=== PATIENT | female | born 1965 | race Caucasian/White ===

== ENCOUNTER 2017-10-25 13:10 | Inpatient (IN) | payer MEDICAID ==
[~2017-10-25] VITALS: Ht 175.3 cm; Wt 60.0 kg
[~2017-10-25 13:10] MED LIST: ASPI-1265 PO; CETI-102 PO; COMIN IH; DIPH-423 PO; FAMO-1 PO; FURO-150 PO; GRAP50CA5 PO; HYAL1CAP PO; INSU100V36 SQ; KETO5DRO75 OP; LANTUS SUBCUT; LEVA15HF4 IH; LISI2.5T2 PO; MILK200C2 PO; MOME17SP BOTHNARES; MONT10TA21 PO; NITR0.4T48 SL; PANT40TA39 PO; PRED1DRO OP; TRAM50TA2 PO; VALA-7 PO; VITA-319 PO; ZOL50T PO
[2017-10-25 14:22] LABS: INR 1.2 INR; PARTIAL THROMBOPLASTIN TIME 29 SECONDS (22-32)
[2017-10-25 14:28] LABS: ALANINE AMINOTRANSFERASE 16 U/L (12-78); ALBUMIN 2.8 G/DL (3.4-5.0); ALBUMIN/GLOBULIN RATIO 0.5 (1.1-1.5); ALKALINE PHOSPHATASE 92 IU/L (46-116); ANION GAP 8 (8-16); ASPARTATE AMINO TRANSFERASE 23 U/L (10-37); BILIRUBIN,TOTAL 0.8 MG/DL (0.1-1.0); BLOOD UREA NITROGEN 11 MG/DL (7-18); BUN/CREATININE RATIO 14.9 (6.6-38.0); CALCIUM 9.6 MG/DL (8.5-10.1); CHLORIDE 97 MMOL/L (99-107); CREATININE 0.74 MG/DL (0.40-0.90); GLUCOSE 235 MG/DL (70-104); POTASSIUM 3.1 MMOL/L (3.5-5.1); SODIUM 136 MMOL/L (135-145); TOTAL CARBON DIOXIDE 31.4 MMOL/L (24-32); eGFR 82 ML/MIN
[2017-10-25] MEDS ORDERED: CefTRIAXone 2gm/D5W 50ml 50 ML IV ONE (14:30)
[2017-10-25] MEDS ORDERED: azithromycin/NS 500mg/250ml 250 ML IV ONE (14:30)
[2017-10-25 14:37] LABS: BASOPHILS % (AUTO) 0.3 % (0-1); EOSINOPHILS # (AUTO) 0.1 X10'3 (0-0.9); EOSINOPHILS % (AUTO) 1.6 % (0-6); HEMATOCRIT 37.7 % (35.0-45.0); HEMOGLOBIN 12.7 g/dl (12.0-16.0); LYMPHOCYTES # (AUTO) 0.9 X10'3 (1.1-4.8); LYMPHOCYTES % (AUTO) 10.4 % (21-51); MEAN CORPUSCULAR HEMOGLOBIN 30.8 PG (27.0-31.0); MEAN CORPUSCULAR HGB CONC 33.8 % (33.0-36.5); MEAN CORPUSCULAR VOLUME 91.2 FL (78-98); MEAN PLATELET VOLUME 8.5 FL (7.4-10.4); MONOCYTES # (AUTO) 0.6 X10'3 (0-0.9); MONOCYTES % (AUTO) 7.1 % (2-12); NEUTROPHILS # (AUTO) 6.8 X10'3 (1.8-7.7); NEUTROPHILS % (AUTO) 80.6 % (42-75); PLATELET COUNT 196 X10'3 (140-440); RED BLOOD COUNT 4.13 X10'6 (4.20-5.60); RED CELL DISTRIBUTION WIDTH 16.5 % (11.5-14.5); WHITE BLOOD COUNT 8.4 X10'3 (4.5-11.0)
[2017-10-25] MEDS ORDERED: iohexol 350MG/ML 100ml bottle IV ONE (14:50)
[2017-10-25] MEDS ORDERED: furosemide 10 MG/1 ML 10ml inj IV ONE (16:20)
[2017-10-25] MEDS ORDERED: mag hydrox/Alum hydrox/simeth 30ml oral suspension PO PRN (16:35)
[2017-10-25] MEDS ORDERED: magnesium hydroxide 30ml (MOM) UD suspension PO PRN (16:35)
[2017-10-25] MEDS ORDERED: acetaminophen 325mg tablet PO PRN (16:35)
[2017-10-25] MEDS ORDERED: HYDROcodone/acetaminophen 5mg/325mg tablet PO PRN (16:35)
[2017-10-25] MEDS ORDERED: potassium Cl 20 mEq SR tablet PO ONE (16:35)
[2017-10-25] MEDS ORDERED: morphine 2 MG/ML inj. syringe IV PRN ×2 (16:35)
[2017-10-25] MEDS ORDERED: CHOL10002 PO (17:29)
[2017-10-25] MEDS ORDERED: nitroGLYCERIN 0.4mg SUBLingual tab SL PRN (18:30)
[2017-10-25] MEDS ORDERED: famotidine 20mg tablet PO ONE (19:55)
[2017-10-25] MEDS: famotidine 20mg tablet PO SCH (20:00)
[2017-10-25] MEDS ORDERED: [UNRECOGNIZED DRUG - OTHER] PO SCH (20:00)
[2017-10-25] MEDS ORDERED: furosemide 20 MG/2 ML vial IV SCH (20:00)
[2017-10-25] MEDS ORDERED: [UNRECOGNIZED DRUG - OTHER] PO SCH (20:00)
[2017-10-25] MEDS: KETOTIFEN FUMARATE OP SCH (20:00)
[2017-10-25] MEDS: furosemide 20 MG/2 ML vial IV SCH (20:00)
[2017-10-25 20:45] VITALS: BP 102/72
[2017-10-25] MEDS ORDERED: insulin glargine (Lantus) pen - multi-dose SQ SCH (21:00)
[2017-10-25] MEDS: diphenhydrAMINE 25mg capsule PO SCH (22:01)
[2017-10-25] MEDS: insulin glargine (Lantus) pen - multi-dose SQ SCH (22:20)
[2017-10-26] VITALS (9 sets, daily range): BP systolic 91–129; BP diastolic 53–87
[2017-10-26] MEDS: ondansetron/PF 4mg/2ml inj IV PRN ×2 (00:20→10:34)
[2017-10-26 03:28] LABS: ALBUMIN 2.7 G/DL (3.4-5.0); ANION GAP 5 (8-16); BLOOD UREA NITROGEN 13 MG/DL (7-18); CALCIUM 8.7 MG/DL (8.5-10.1); CHLORIDE 99 MMOL/L (99-107); CREATININE 0.81 MG/DL (0.40-0.90); GLUCOSE 189 MG/DL (70-104); POTASSIUM 3.6 MMOL/L (3.5-5.1); SODIUM 137 MMOL/L (135-145); eGFR 74 ML/MIN
[2017-10-26 05:15] LABS: BASOPHILS % (AUTO) 0.4 % (0-1); EOSINOPHILS # (AUTO) 0.1 X10'3 (0-0.9); EOSINOPHILS % (AUTO) 1.3 % (0-6); HEMATOCRIT 37.1 % (35.0-45.0); HEMOGLOBIN 12.2 g/dl (12.0-16.0); LYMPHOCYTES # (AUTO) 0.8 X10'3 (1.1-4.8); LYMPHOCYTES % (AUTO) 10.1 % (21-51); MEAN CORPUSCULAR HEMOGLOBIN 30.5 PG (27.0-31.0); MEAN CORPUSCULAR VOLUME 92.6 FL (78-98); MEAN PLATELET VOLUME 8.6 FL (7.4-10.4); MONOCYTES # (AUTO) 0.6 X10'3 (0-0.9); MONOCYTES % (AUTO) 6.9 % (2-12); NEUTROPHILS # (AUTO) 6.8 X10'3 (1.8-7.7); NEUTROPHILS % (AUTO) 81.3 % (42-75); PLATELET COUNT 195 X10'3 (140-440); RED BLOOD COUNT 4.01 X10'6 (4.20-5.60); WHITE BLOOD COUNT 8.3 X10'3 (4.5-11.0)
[2017-10-26] MEDS: KETOTIFEN FUMARATE OP SCH ×2 (08:00→20:00)
[2017-10-26] MEDS: fluticasone nasal spray 16GM bottle NS SCH (08:00)
[2017-10-26] MEDS: enoxaparin 40mg/0.4ml syringe SUBCUT SCH (08:00)
[2017-10-26] MEDS ORDERED: sertraline 25mg tablet PO SCH (08:00)
[2017-10-26] MEDS: furosemide 20 MG/2 ML vial IV SCH ×2 (08:22→20:11)
[2017-10-26] MEDS: montelukast 10mg tablet PO SCH (08:24)
[2017-10-26] MEDS: valacyclovir 500mg tablet PO SCH (08:24)
[2017-10-26] MEDS: pantoprazole 40mg Tablet.DR PO SCH (08:24)
[2017-10-26] MEDS: famotidine 20mg tablet PO SCH ×2 (08:25→20:14)
[2017-10-26] MEDS: aspirin 81mg tablet.DR PO SCH (08:25)
[2017-10-26] MEDS: cetirizine 10mg tablet PO SCH (08:25)
[2017-10-26] MEDS ORDERED: LIDOcaine 0.5% (5mg/ml) 50ml vial ONE (09:16)
[2017-10-26] MEDS ORDERED: sertraline 50mg tablet PO ONE (14:20)
[2017-10-26] MEDS: traMADol 50MG tablet PO PRN ×2 (16:36→21:53)
[2017-10-26] MEDS: albuterol 2.5 MG/3 ML nebule NEB PRN (16:59)
[2017-10-26] MEDS: carVEDilol 3.125mg tablet PO SCH (20:00)
[2017-10-26] MEDS: diphenhydrAMINE 25mg capsule PO SCH (20:14)
[2017-10-26] MEDS ORDERED: insulin glargine (Lantus) pen - multi-dose SQ SCH (21:00)
[2017-10-26] MEDS: insulin glargine (Lantus) pen - multi-dose SQ SCH (21:00)
[2017-10-27] MEDS: albuterol 2.5 MG/3 ML nebule NEB PRN ×2 (00:40→11:08)
[2017-10-27 03:00] VITALS: BP 104/61
[2017-10-27 05:42] LABS: BASOPHILS % (AUTO) 0.3 % (0-1); EOSINOPHILS # (AUTO) 0.2 X10'3 (0-0.9); EOSINOPHILS % (AUTO) 1.9 % (0-6); HEMATOCRIT 35.9 % (35.0-45.0); HEMOGLOBIN 11.9 g/dl (12.0-16.0); LYMPHOCYTES # (AUTO) 1.1 X10'3 (1.1-4.8); LYMPHOCYTES % (AUTO) 10.8 % (21-51); MEAN CORPUSCULAR HEMOGLOBIN 30.6 PG (27.0-31.0); MEAN CORPUSCULAR HGB CONC 33.2 % (33.0-36.5); MEAN CORPUSCULAR VOLUME 91.9 FL (78-98); MEAN PLATELET VOLUME 8.5 FL (7.4-10.4); MONOCYTES # (AUTO) 0.8 X10'3 (0-0.9); MONOCYTES % (AUTO) 7.3 % (2-12); NEUTROPHILS # (AUTO) 8.5 X10'3 (1.8-7.7); NEUTROPHILS % (AUTO) 79.7 % (42-75); PLATELET COUNT 196 X10'3 (140-440); RED BLOOD COUNT 3.91 X10'6 (4.20-5.60); RED CELL DISTRIBUTION WIDTH 16.5 % (11.5-14.5); WHITE BLOOD COUNT 10.7 X10'3 (4.5-11.0)
[2017-10-27 05:47] LABS: ALBUMIN 2.4 G/DL (3.4-5.0); ANION GAP 7 (8-16); BLOOD UREA NITROGEN 12 MG/DL (7-18); BUN/CREATININE RATIO 15.8 (6.6-38.0); CALCIUM 7.8 MG/DL (8.5-10.1); CHLORIDE 97 MMOL/L (99-107); CREATININE 0.76 MG/DL (0.40-0.90); GLUCOSE 138 MG/DL (70-104); SODIUM 137 MMOL/L (135-145); eGFR 79 ML/MIN
[2017-10-27 06:00] VITALS: BP 115/75
[2017-10-27 07:26] LABS: POTASSIUM 2.7 MMOL/L (3.5-5.1)
[2017-10-27] MEDS: lisinopril 2.5mg tablet PO SCH (08:00)
[2017-10-27] MEDS: carVEDilol 3.125mg tablet PO SCH ×2 (08:00→20:00)
[2017-10-27] MEDS: K and/or MAG REPLACEMENT MC SCH (08:00)
[2017-10-27] MEDS: fluticasone nasal spray 16GM bottle NS SCH (08:00)
[2017-10-27] MEDS: KETOTIFEN FUMARATE OP SCH ×2 (08:00→20:00)
[2017-10-27] MEDS ORDERED: potassium Cl 20 mEq SR tablet PO PRN (08:30)
[2017-10-27] MEDS ORDERED: magnesium 1gm/100ml D5W IVPB 100 ML IV PRN (08:30)
[2017-10-27] MEDS ORDERED: potassium Cl 40MEQ/250ML bag 250 ML IV PRN ×2 (08:30)
[2017-10-27] MEDS ORDERED: magnesium Cl slow-release 64mg tablet PO PRN (08:30)
[2017-10-27] MEDS: spironolactone 25 MG tablet PO SCH (08:30)
[2017-10-27] MEDS ORDERED: potassium Cl 40MEQ/NS 500ml 500 ML IV PRN ×2 (08:30)
[2017-10-27] MEDS ORDERED: magnesium 4gm in 100ml NS 100 ML IV PRN (08:30)
[2017-10-27] MEDS: aspirin 81mg tablet.DR PO SCH (08:52)
[2017-10-27] MEDS: sertraline 25mg tablet PO SCH (08:52)
[2017-10-27] MEDS: potassium chloride 8mEq ER tablet PO SCH ×2 (08:54→20:43)
[2017-10-27] MEDS: traMADol 50MG tablet PO PRN ×3 (08:54→20:48)
[2017-10-27] MEDS: famotidine 20mg tablet PO SCH ×2 (08:54→20:43)
[2017-10-27] MEDS: montelukast 10mg tablet PO SCH (08:55)
[2017-10-27] MEDS: enoxaparin 40mg/0.4ml syringe SUBCUT SCH ×2 (08:56→09:06)
[2017-10-27] MEDS: valacyclovir 500mg tablet PO SCH (08:57)
[2017-10-27] MEDS: cetirizine 10mg tablet PO SCH (08:58)
[2017-10-27] MEDS: pantoprazole 40mg Tablet.DR PO SCH (08:58)
[2017-10-27] MEDS: furosemide 20 MG/2 ML vial IV SCH ×2 (08:59→20:44)
[2017-10-27 11:00] VITALS: BP 108/60
[2017-10-27 15:00] VITALS: BP 103/55
[2017-10-27] MEDS: potassium Cl 20 mEq SR tablet PO PRN ×2 (15:03→20:43)
[2017-10-27 19:00] VITALS: BP 97/65
[2017-10-27] MEDS: diphenhydrAMINE 25mg capsule PO SCH (20:43)
[2017-10-27] MEDS: insulin glargine (Lantus) pen - multi-dose SQ SCH (21:00)
[2017-10-27] MEDS: ondansetron/PF 4mg/2ml inj IV PRN (21:13)
[2017-10-27 23:00] VITALS: BP 110/73
[2017-10-28] MEDS ORDERED: metoclopramide 5 mg/ml inj IV PRN (00:45)
[2017-10-28] MEDS ORDERED: ondansetron/PF 4mg/2ml inj IV ONE (00:45)
[2017-10-28] MEDS: traMADol 50MG tablet PO PRN (02:18)
[2017-10-28 03:00] VITALS: BP 97/65
[2017-10-28 05:18] LABS: BASOPHILS % (AUTO) 0.4 % (0-1); EOSINOPHILS # (AUTO) 0.2 X10'3 (0-0.9); EOSINOPHILS % (AUTO) 1.8 % (0-6); HEMATOCRIT 37.5 % (35.0-45.0); HEMOGLOBIN 12.6 g/dl (12.0-16.0); LYMPHOCYTES # (AUTO) 1.3 X10'3 (1.1-4.8); MEAN CORPUSCULAR HEMOGLOBIN 30.9 PG (27.0-31.0); MEAN CORPUSCULAR HGB CONC 33.6 % (33.0-36.5); MEAN CORPUSCULAR VOLUME 91.9 FL (78-98); MEAN PLATELET VOLUME 8.3 FL (7.4-10.4); MONOCYTES % (AUTO) 10.2 % (2-12); NEUTROPHILS # (AUTO) 7.2 X10'3 (1.8-7.7); NEUTROPHILS % (AUTO) 74.6 % (42-75); PLATELET COUNT 213 X10'3 (140-440); RED BLOOD COUNT 4.08 X10'6 (4.20-5.60); RED CELL DISTRIBUTION WIDTH 16.4 % (11.5-14.5); WHITE BLOOD COUNT 9.6 X10'3 (4.5-11.0)
[2017-10-28 05:33] LABS: ALBUMIN 2.6 G/DL (3.4-5.0); ANION GAP 6 (8-16); BLOOD UREA NITROGEN 16 MG/DL (7-18); BUN/CREATININE RATIO 15.8 (6.6-38.0); CALCIUM 8.5 MG/DL (8.5-10.1); CHLORIDE 98 MMOL/L (99-107); CREATININE 1.01 MG/DL (0.40-0.90); GLUCOSE 222 MG/DL (70-104); MAGNESIUM 1.4 MG/DL (1.5-2.4); POTASSIUM 5.4 MMOL/L (3.5-5.1); SODIUM 134 MMOL/L (135-145); eGFR 57 ML/MIN
[2017-10-28 06:00] VITALS: BP 91/59
[2017-10-28] MEDS: carVEDilol 3.125mg tablet PO SCH (08:00)
[2017-10-28] MEDS: lisinopril 2.5mg tablet PO SCH (08:00)
[2017-10-28] MEDS: K and/or MAG REPLACEMENT MC SCH (08:00)
[2017-10-28] MEDS: KETOTIFEN FUMARATE OP SCH (08:00)
[2017-10-28] MEDS ORDERED: insulin glargine (Lantus) pen - multi-dose SQ PRN (08:00)
[2017-10-28] MEDS: fluticasone nasal spray 16GM bottle NS SCH (08:00)
[2017-10-28] MEDS: spironolactone 25 MG tablet PO SCH (08:30)
[2017-10-28] MEDS: furosemide 20 MG/2 ML vial IV SCH (09:19)
[2017-10-28] MEDS: aspirin 81mg tablet.DR PO SCH (09:19)
[2017-10-28 09:20] VITALS: BP 117/69
[2017-10-28] MEDS: montelukast 10mg tablet PO SCH (09:20)
[2017-10-28] MEDS: pantoprazole 40mg Tablet.DR PO SCH (09:20)
[2017-10-28] MEDS: sertraline 25mg tablet PO SCH (09:22)
[2017-10-28] MEDS: famotidine 20mg tablet PO SCH (09:22)
[2017-10-28] MEDS: valacyclovir 500mg tablet PO SCH (09:24)
[2017-10-28] MEDS: cetirizine 10mg tablet PO SCH (09:25)
[2017-10-28] MEDS: ondansetron/PF 4mg/2ml inj IV PRN (09:57)
[2017-10-28 11:00] VITALS: BP 105/71
== END 2017-10-28 16:10 | disposition home health service (06) | DRG 194 ==
LOC: ER 13:10 → ED HOLD 16:33 → PCU 3S 20:53
PROVIDERS: ADMIT Internal Medicine; ATTEND Internal Medicine
PROC: BW241ZZ Computerized Tomography (CT Scan) of Chest and Abdomen using Low Osmolar Contrast (ICD-10-PCS; principal; 2017-10-25)
PROC: 0W993ZX Drainage of Right Pleural Cavity, Percutaneous Approach, Diagnostic (ICD-10-PCS; 2017-10-26)
PROC: 0W9B3ZZ Drainage of Left Pleural Cavity, Percutaneous Approach (ICD-10-PCS; 2017-10-26)
DX: I50.23 Acute on chronic systolic (congestive) heart failure (principal); J96.21 Acute and chronic respiratory failure with hypoxia; J90 Pleural effusion, not elsewhere classified; E11.9 Type 2 diabetes mellitus without complications; G47.30 Sleep apnea, unspecified; I25.10 Atherosclerotic heart disease of native coronary artery without angina pectoris; E87.6 Hypokalemia; F12.90 Cannabis use, unspecified, uncomplicated; F32.9 Major depressive disorder, single episode, unspecified; J44.9 Chronic obstructive pulmonary disease, unspecified; F17.210 Nicotine dependence, cigarettes, uncomplicated; Z79.82 Long term (current) use of aspirin; Z90.710 Acquired absence of both cervix and uterus; Z79.899 Other long term (current) drug therapy; Z88.1 Allergy status to other antibiotic agents; Z88.2 Allergy status to sulfonamides; Z88.8 Allergy status to other drugs, medicaments and biological substances; Z90.49 Acquired absence of other specified parts of digestive tract; Z98.51 Tubal ligation status
CPT/HCPCS: 32555; 36415; 71045; 71046; 71275; 80048; 80053; 82948; 83735; 83880; 84132; 84484; 85025; 85610; 85730; 87070; 93005; 93306; 94640; 94667; 94760; 96365; 96368; 96375; 99285; J0456; J0696; J1650; J1815; J1940; J2001; J2405; J2765; J7030; Q0163; Q9967

== ENCOUNTER 2017-11-23 08:20 | Day surgery (SDC) | payer MEDICAID ==
[~2017-11-23] VITALS: Ht 175.3 cm; Wt 65.0 kg
[~2017-11-23 08:20] MED LIST changes: +0.9 % SODIUM CHLORIDE 10 ML VIAL ONE; +CHOL10002 PO; -LISI2.5T2 PO; -MONT10TA21 PO; +calcium chloride 100 MG/1 ML inj IV ONE; +epiNEPHrine 0.1mg/ml 10ml syringe ONE; +sodium bicarbonate (8.4%) 1 mEq/ml syringe ONE
[2017-11-23 09:10] VITALS: BP 119/73
[2017-11-23] MEDS ORDERED: LIDOcaine 1% (10mg/ml)w/preservative injection 20ml MDV SQ ONE (09:30)
[2017-11-23 09:56] VITALS: BP 110/52
[2017-11-23] MEDS ORDERED: epiNEPHrine 1 mg/ml inj ONE ×3 (10:27→10:40)
[2017-11-23] MEDS ORDERED: sodium bicarbonate 1 MEQ/1 ml inj ONE (10:39)
== END 2017-11-23 13:10 | disposition expired ==
LOC: SSTAY O 08:20
PROVIDERS: ATTEND Radiology Diagnostic Radiology
DX: J90 Pleural effusion, not elsewhere classified (principal); I25.5 Ischemic cardiomyopathy; I25.10 Atherosclerotic heart disease of native coronary artery without angina pectoris; I25.2 Old myocardial infarction; I50.9 Heart failure, unspecified; E11.9 Type 2 diabetes mellitus without complications; G47.33 Obstructive sleep apnea (adult) (pediatric); J44.9 Chronic obstructive pulmonary disease, unspecified; I46.8 Cardiac arrest due to other underlying condition; F32.89 Other specified depressive episodes; I95.9 Hypotension, unspecified; K21.9 Gastro-esophageal reflux disease without esophagitis; M06.9 Rheumatoid arthritis, unspecified; F43.10 Post-traumatic stress disorder, unspecified; F17.210 Nicotine dependence, cigarettes, uncomplicated; Z86.69 Personal history of other diseases of the nervous system and sense organs; Z86.14 Personal history of Methicillin resistant Staphylococcus aureus infection; Z99.81 Dependence on supplemental oxygen; Z79.891 Long term (current) use of opiate analgesic; Z79.82 Long term (current) use of aspirin; Z95.5 Presence of coronary angioplasty implant and graft; Z90.710 Acquired absence of both cervix and uterus; Z90.49 Acquired absence of other specified parts of digestive tract; Z98.51 Tubal ligation status; Z79.4 Long term (current) use of insulin; Z88.1 Allergy status to other antibiotic agents; Z88.2 Allergy status to sulfonamides; Z88.8 Allergy status to other drugs, medicaments and biological substances; Z79.899 Other long term (current) drug therapy; Z98.890 Other specified postprocedural states; Z82.49 Family history of ischemic heart disease and other diseases of the circulatory system
CPT/HCPCS: 32555; 71045; 92950; 93308; J0171; J2001